=== PATIENT | male | born 1985 | race Caucasian/White ===

== ENCOUNTER 2024-02-05 13:46 | Emergency (ER) | payer SELFPAY ==
[2024-02-05 14:01] VITALS: TEMP 97.8
--- NOTE | 2024-02-05 14:17 | ERPHSYRPT ---
- History of Present Illness Time Seen by Provider: 02/05/24 13:53 Source: patient Exam Limitations: no limitations Patient Subjective Stated Complaint: bilateral upper leg pain since Monday Triage Nursing Assessment: Pt presents to ED bed 8 via WC. C/o bilateral upper leg/thigh pain since walking a mile and squatting on Monday. States pain 3/10 while sitting, 9/10 when up moving. No bruising or deformities noted. Tylenol at home with little relief. Skin PWD. Pt A &OX3, answers questions appropriately. Physician History: 38 years old morbidly obese male presented in the ER bed bilateral anterior thighs pain for the last 2 days. Patient reports he was at a concert where he was on a low set seat and had to stand up multiple times to give way to other people walking in front of him/squatting multiple x 2 days ago and after that he started to feel soreness and burning sensation in the thighs. It gets better with resting but more pain with ambulation. No redness swelling or increased temperature in the area. Has taken Tylenol yesterday with no significant relief. No swelling of thighs/legs. No erythema or redness. Diffuse tenderness to deep palpation. Distal neurovascular intact. I believe patient is having muscle spasms, recommended NSAIDs and muscle relaxant here and to go home but he does not want any thing in here. Patient is having trouble walking because of pain and wants a work excuse. Offered blood work to evaluate for rhabdo but patient does not want but is more interested in scan which I do not think patient needs any. Recommended increase hydration and outpatient follow-up. Discussed signs symptoms of worsening needing return to ER which he seems understanding. Stable for discharge. Allergies/Adverse Reactions: cephalexin [From Keflex] Allergy (Unknown, Verified 02/05/24 14:36) Hx Tetanus, Diphtheria Vaccination/Date Given: Yes Hx Influenza Vaccination/Date Given: Yes Travel Risk - International Travel Have you traveled outside of the country in past 3 weeks: No - Review of Systems Constitutional: No Symptoms Ears, Nose, & Throat: No Symptoms Respiratory: No Symptoms Cardiac: No Symptoms Abdominal/Gastrointestinal: No Symptoms Musculoskeletal: Myalgias Skin: No Symptoms Neurological: No Symptoms Endocrine: No Symptoms Hematologic/Lymphatic: No Symptoms - Past Medical History Pertinent Past Medical History: Yes - Past Surgical History Past Surgical History: Yes Gastrointestinal: Hernia Repair - Social History Smoking Status: Never smoker Drug Use: none - Nursing Vital Signs Nursing Vital Signs: Initial Vital Signs Temperature 97.8 F 02/05/24 13:55 Pulse Rate 88 02/05/24 13:55 Respiratory Rate 16 02/05/24 13:55 Blood Pressure 151/94 02/05/24 13:55 O2 Sat by Pulse Oximetry 97 02/05/24 13:55 Pain Scale Pain Intensity 3 - Physical Exam General Appearance: no apparent distress, alert Eye Exam: PERRL/EOMI Neck Exam: normal inspection, full range of motion Respiratory Exam: normal breath sounds, lungs clear Cardiovascular Exam: regular rate/rhythm, normal heart sounds Extremity Exam: normal inspection, normal range of motion, pelvis stable, tenderness (Thigh muscle tenderness) Neurologic Exam: alert, oriented x 3, cooperative Skin Exam: normal color SpO2 Interpretation: normal SpO2: 97 O2 Delivery: Room Air Ordered Tests: Medication Summary Discontinued Medications Generic Name Dose Route Start Last Admin Trade Name Freq PRN Reason Stop Dose Admin Ketorolac Tromethamine 30 mg 02/05/24 14:11 Ketorolac Tromethamine 30 Mg/Ml Inj IM 02/05/24 14:12 STAT ONE Ketorolac Tromethamine Confirm 02/05/24 14:37 Ketorolac Tromethamine 30 Mg/Ml Inj Administered 02/05/24 14:38 Dose 30 mg .ROUTE .STK-MED ONE Orphenadrine Citrate 60 mg 02/05/24 14:11 Orphenadrine Citrate 60 Mg/2 Ml Vial IM 02/05/24 14:12 STAT ONE Orphenadrine Citrate Confirm 02/05/24 14:37 Orphenadrine Citrate 60 Mg/2 Ml Vial Administered 02/05/24 14:38 Dose 60 mg .ROUTE .STK-MED ONE - Progress Progress: pain not gone completely Progress Note: 02/05/24 14:15 38 years old morbidly obese male presented in the ER bed bilateral anterior thighs pain for the last 2 days. Patient reports he was at a concert where he was on a low set seat and had to stand up multiple times to give way to other people walking in front of him/squatting multiple x 2 days ago and after that he started to feel soreness and burning sensation in the thighs. It gets better with resting but more pain with ambulation. No redness swelling or increased temperature in the area. Has taken Tylenol yesterday with no significant relief. No swelling of thighs/legs. No erythema or redness. Diffuse tenderness to deep palpation. Distal neurovascular intact. I believe patient is having muscle spasms, recommended NSAIDs and muscle relaxant here and to go home but he does not want any thing in here. Patient is having trouble walking because of pain and wants a work excuse. Offered blood work to evaluate for rhabdo but patient does not want but is more interested in scan which I do not think patient needs any. Recommended increase hydration and outpatient follow-up. Discussed signs symptoms of worsening needing return to ER which he seems understanding. Stable for discharge. Counseled pt/family regarding: diagnosis, need for follow-up Medical Desision Making - Independent Historian Additional History obtained from: Spouse - Diagnostic Testing Diagnostic test were ordered, analyzed, and reviewed by me: No - Risk of complications The pt has a mod risk of morbidity or mortality based on: Need for prescription drug management - Departure Departure Disposition: Home Clinical Impression: Muscle strain of thigh Condition: Stable Critical Care Time: No Referrals: CATE STRICKLAND, MEDICAL FIELD REPRESENTATIVE [Primary Care Provider] - Follow up/PCP as directed Instructions: Lower Extremity Muscle Strain (DC) Additional Instructions: Take Tylenol/ibuprofen as needed. Drink plenty of fluids to keep yourself well- hydrated. Avoid exertional activities. Follow-up with primary care for reevaluation in 1 to 2 days. Return to ER for worsening pain, difficulty ambulation, discoloration of urine, intractable nausea vomiting etc. Prescriptions: Ibuprofen 600 mg PO Q6HPRN PRN 10 Days #20 tablet PRN Reason: Pain Cyclobenzaprine HCl 10 mg [Flexeril 10 MG] 10 mg PO TID #12 tablet
[2024-02-05] MEDS ORDERED: TORAdol 30 mg Injection ONE (14:37)
[2024-02-05] MEDS ORDERED: Norflex 60 MG/2 ML ONE (14:37)
[2024-02-05] MEDS: Norflex 60 MG/2 ML IM ONE (15:01)
[2024-02-05] MEDS: TORAdol 30 mg Injection IM ONE (15:01)
[2024-02-05 15:02] VITALS: BP 121/75; PULSE 94; RESP 15; O2SAT 98
== END 2024-02-05 15:15 | disposition home or self-care (01) ==
LOC: ED 13:46
DX: S76.912A Strain of unspecified muscles, fascia and tendons at thigh level, left thigh, initial encounter (principal); S76.911A Strain of unspecified muscles, fascia and tendons at thigh level, right thigh, initial encounter; X50.3XXA Overexertion from repetitive movements, initial encounter; Z79.899 Other long term (current) drug therapy
CPT/HCPCS: 99281; J1885; J2360